=== PATIENT | female | born 1975 | race Caucasian/White ===

== ENCOUNTER 2021-12-21 02:53 | Emergency (ER) | payer SELFPAY ==
[2021-12-21] MEDS ORDERED: Ketorolac Tromethamine 30 MG/ML VIAL ONE (03:22)
[2021-12-21] MEDS ORDERED: Acetaminophen 500 MG TAB ONE (03:22)
== END 2021-12-21 04:13 | disposition home or self-care (01) ==
LOC: CSHERS 02:53
DX: S52.122A Displaced fracture of head of left radius, initial encounter for closed fracture (principal); Z87.891 Personal history of nicotine dependence; V00.211A Fall from ice-skates, initial encounter; Y93.21 Activity, ice skating
CPT/HCPCS: J1885